=== PATIENT | male | born 1950 | race Caucasian/White ===

== ENCOUNTER 2017-08-28 17:35 | Emergency (ER) | payer MEDICARE, OTHER ==
[~2017-08-28] VITALS: Ht 182.9 cm; Wt 85.4 kg
[2017-08-28 17:40] VITALS: BP 121/86; PULSE 166; RESP 20; O2SAT 97
[2017-08-28 17:45] VITALS: BP 111/78; PULSE 82; RESP 16; O2SAT 97; O2SAT 98
[2017-08-28] MEDS ORDERED: ADENOSINE IV SOLN 3 MG/ML 2 ML VIAL ONE (17:49)
[2017-08-28] MEDS ORDERED: ADENOSINE IV SOLN 3 MG/ML 2 ML VIAL IV PUSH ONE (18:00)
[2017-08-28 18:12] VITALS: BP 119/75; PULSE 78; RESP 16; O2SAT 97
[2017-08-28 18:15] LABS: AUTOMATED NEUTROPHIL # 4.9 TH/MM3 (1.8-7.7); BASOPHIL # 0.1 TH/MM3 (0-0.2); BASOPHIL % 0.6 % (0.0-2.0); EOSINOPHIL # 0.6 TH/MM3 (0-0.4); EOSINOPHIL % 6.2 % (0.0-4.0); HEMATOCRIT 49.1 % (39.0-51.0); HEMOGLOBIN 15.6 GM/DL (13.0-17.0); LYMPH % 35.5 % (9.0-44.0); LYMPHOCYTE # 3.6 TH/MM3 (1.0-4.8); MEAN CELL VOLUME 88.8 FL (80.0-100.0); MEAN CORPUSCULAR HEMOGLOBIN 28.2 PG (27.0-34.0); MEAN CORPUSCULAR HGB CONC 31.7 % (32.0-36.0); MEAN PLATELET VOLUME 7.8 FL (7.0-11.0); MONO % 7.5 % (0.0-8.0); MONOCYTE # 0.8 TH/MM3 (0-0.9); NEUT % 50.2 % (16.0-70.0); PLATELET COUNT 270 TH/MM3 (150-450); RED BLOOD COUNT 5.53 MIL/MM3 (4.50-5.90); RED CELL DISTRIBUTION WIDTH 13.2 % (11.6-17.2)
[2017-08-28 18:24] LABS: CHLORIDE 100 MEQ/L (98-107); SODIUM (NA) 136 MEQ/L (136-145)
--- NOTE | 2017-08-28 18:25 | PD ---
HPI Chief Complaint: Chest Pain Time Seen by Provider: 17:57 Travel History International Travel<30 days: No Contact w/Intl Traveler<30days: No Traveled to known affect area: No History of Present Illness HPI 67-year-old male complains of chest pain. Patient states that he started having substernal chest pressure about 40 minutes prior to arrival. Patient denies any shortness of breath. Patient denies any chest pain radiation. Patient denies palpitation nausea. Patient states that he had diaphoresis upon arrival to the ED. Patient denies any history of CAD. Patient states that she has lightheadedness. Patient denies history hypertension. Patient has history of prediabetes. Patient denies any history of cholesterol problem. Patient is a nonsmoker. Patient denies history heart disease. Patient denies any past medical history. Patient states that he is not on any medication. Patient denies any alcohol or drug abuse. On a scale of 1-10 the pain is a 5. PFSH Past Medical History Cancer: Yes (colon) Diminished Hearing: No Social History Alcohol Use: Yes (occ) Tobacco Use: No Substance Use: No Allergies-Medications (Allergen,Severity, Reaction): Coded Allergies: No Known Allergies (Unverified Adverse Reaction, Unknown, 08/28/17) Reported Meds & Prescriptions Reported Meds & Active Scripts Active No Active Prescriptions or Reported Medications Review of Systems General / Constitutional: No: Fever Eyes: No: Visual changes HENT: No: Headaches Cardiovascular: Positive: Chest Pain or Discomfort Respiratory: No: Shortness of Breath Gastrointestinal: No: Abdominal Pain Genitourinary: No: Dysuria Musculoskeletal: No: Pain Skin: No Rash Neurologic: No: Weakness Psychiatric: No: Depression Endocrine: No: Polydipsia Hematologic/Lymphatic: No: Easy Bruising Physical Exam Narrative GENERAL: Well-nourished, well-developed patient. SKIN: Focused skin assessment warm/dry. HEAD: Normocephalic. EYES: No scleral icterus. No injection or drainage. NECK: Supple, trachea midline. No JVD or lymphadenopathy. CARDIOVASCULAR: Tachycardia rate and rhythm without murmurs, gallops, or rubs. RESPIRATORY: Breath sounds equal bilaterally. No accessory muscle use. GASTROINTESTINAL: Abdomen soft, non-tender, nondistended. MUSCULOSKELETAL: No cyanosis, or edema. BACK: Nontender without obvious deformity. No CVA tenderness. Neurologic exam normal. Data Data Last Documented VS Vital Signs Date Time Temp Pulse Resp B/P (MAP) Pulse Ox O2 Delivery O2 Flow Rate FiO2 08/28/17 18:12 78 16 119/75 (90) 97 Nasal Cannula 2.00 Orders Orders Adenosine Inj (Adenocard Inj) (08/28/17 17:49) Electrocardiogram (08/28/17 17:58) Electrocardiogram (08/28/17 ) Adenosine Inj (Adenocard Inj) (08/28/17 18:00) Complete Blood Count With Diff (08/28/17 18:00) Comprehensive Metabolic Panel (08/28/17 18:00) Creatine Kinase (Cpk) (08/28/17 18:00) Troponin I (08/28/17 18:00) Prothrombin Time / Inr (Pt) (08/28/17 18:00) Act Partial Throm Time (Ptt) (08/28/17 18:00) Thyroid Stimulating Hormone (08/28/17 18:00) Chest, Single Ap (08/28/17 18:00) Iv Access Insert/Monitor (08/28/17 18:00) Ecg Monitoring (08/28/17 18:00) Oximetry (08/28/17 18:00) Aspirin (Aspirin) (08/28/17 18:30) Ed Discharge Order (08/28/17 19:19) Labs Laboratory Tests Test 08/28/17 18:00 White Blood Count 10.0 TH/MM3 Red Blood Count 5.53 MIL/MM3 Hemoglobin 15.6 GM/DL Hematocrit 49.1 % Mean Corpuscular Volume 88.8 FL Mean Corpuscular Hemoglobin 28.2 PG Mean Corpuscular Hemoglobin Concent 31.7 % Red Cell Distribution Width 13.2 % Platelet Count 270 TH/MM3 Mean Platelet Volume 7.8 FL Neutrophils (%) (Auto) 50.2 % Lymphocytes (%) (Auto) 35.5 % Monocytes (%) (Auto) 7.5 % Eosinophils (%) (Auto) 6.2 % Basophils (%) (Auto) 0.6 % Neutrophils # (Auto) 4.9 TH/MM3 Lymphocytes # (Auto) 3.6 TH/MM3 Monocytes # (Auto) 0.8 TH/MM3 Eosinophils # (Auto) 0.6 TH/MM3 Basophils # (Auto) 0.1 TH/MM3 CBC Comment DIFF FINAL Differential Comment Prothrombin Time 10.3 SEC Prothromb Time International Ratio 1.0 RATIO Activated Partial Thromboplast Time 27.9 SEC Blood Urea Nitrogen 22 MG/DL Creatinine 1.10 MG/DL Random Glucose 98 MG/DL Total Protein 7.7 GM/DL Albumin 4.0 GM/DL Calcium Level 8.6 MG/DL Alkaline Phosphatase 87 U/L Aspartate Amino Transf (AST/SGOT) 12 U/L Alanine Aminotransferase (ALT/SGPT) 20 U/L Total Bilirubin 0.4 MG/DL Sodium Level 136 MEQ/L Potassium Level 3.8 MEQ/L Chloride Level 100 MEQ/L Carbon Dioxide Level 27.1 MEQ/L Anion Gap 9 MEQ/L Estimat Glomerular Filtration Rate 67 ML/MIN Total Creatine Kinase 84 U/L Troponin I LESS THAN 0.02 NG/ML Thyroid Stimulating Hormone 3rd Gen 2.250 uIU/ML MDM Medical Decision Making Medical Screen Exam Complete: Yes Emergency Medical Condition: Yes Interpretation(s) The initial EKG shows SVT rate 168. EKG repeated after adenosine shows sinus rhythm rate 76. Differential Diagnosis Differential diagnosis including SVT, atrial fibrillation, atrial flutter, PVCs , angina, IL, PE, pneumothorax. Narrative Course 67-year-old male with chest pain. Patient has SVT on the monitor strip and EKG. Carotid massage and Valsalva maneuver unsuccessful to lower the heart rate. Adenosine 6 mg IV given. Adenosine successfully convert patient back to sinus rhythm rate in the 70s and 80s. Chest pain resolved with sinus rhythm conversion. Aspirin 325 mg by mouth given. I spoke with Dr. Lopez, human resources specialist autotransfusionist. Advised aspirin 81 mg daily and metoprolol 25 mg twice a day. Diagnosis Primary Impression: Supraventricular tachycardia Patient Instructions: General Instructions Additional Instructions: Take meds as directed . F/U with Med/Other Pt SpecificInfo: Prescription(s) given Scripts Metoprolol Tartrate (Metoprolol Tartrate) 25 Mg Tab 25 MG PO BID, #60 TAB 0 Refills Prov: Salvador Nelson MD 08/28/17 Disposition: 01 DISCHARGE HOME Condition: Stable Salvador Nelson MD Aug 28, 2017 18:25
[2017-08-28 18:27] LABS: CALCIUM 8.6 MG/DL (8.5-10.1)
[2017-08-28 18:28] LABS: BICARBONATE 27.1 MEQ/L (21.0-32.0); BLOOD UREA NITROGEN 22 MG/DL (7-18); GLUCOSE,RANDOM 98 MG/DL (74-106); PROTHROMBIN TIME - PATIENT 10.3 SEC (9.8-11.6)
[2017-08-28] MEDS ORDERED: ASPIRIN 325 MG TAB PO ONE (18:30)
[2017-08-28 18:31] LABS: ALT (GPT) 20 U/L (12-78); AST (GOT) 12 U/L (15-37); GLOMERULAR FILTRATION RATE 67 ML/MIN (>89)
[2017-08-28 18:32] LABS: TOTAL BILIRUBIN ADULT 0.4 MG/DL (0.2-1.0); TOTAL PROTEIN 7.7 GM/DL (6.4-8.2)
[2017-08-28 18:34] LABS: ALKALINE PHOSPHATASE 87 U/L (45-117)
[2017-08-28 18:36] LABS: TROPONIN I LESS THAN 0.02 NG/ML (0.02-0.05)
--- NOTE | 2017-08-28 18:42 | RADRPT ---
EXAM DATE/TIME: 08/28/2017 18:06 [facility] COMPARISON: No previous studies available for comparison. INDICATIONS : Chest pain. MEDICAL HISTORY : Hypertension. SURGICAL HISTORY : None. ENCOUNTER: Initial ACUITY: 1 day PAIN SCORE: 5/10 LOCATION: middle chest FINDINGS: A single view of the chest demonstrates the lungs to be symmetrically aerated without evidence of mas s, infiltrate or effusion. The cardiomediastinal contours are unremarkable. Osseous structures are intact. CONCLUSION: The lungs are clear. Matthew Temple MD on August 28, 2017 at 18:39 Board Certified Radiologist. This report was verified electronically.
[2017-08-28] MEDS ORDERED: METO25TA3 PO (19:25)
[2017-08-28 20:06] VITALS: BP 118/81
--- NOTE | 2017-08-29 13:26 | EKG ---
Date Performed: 08/28/2017 Time Performed: 17:40:54 PTAGE: 67 years EKG: SUPRAVENTRICULAR TACHYCARDIA NONSPECIFIC ST & T-WAVE ABNORMALITY ABNORMAL RHYTHM ECG NO PREVIOUS TRACING DOCTOR: Sage Loa Interpretating Date/Time 08/29/2017 13:26:33
--- NOTE | 2017-08-29 14:28 | EKG ---
Date Performed: 08/28/2017 Time Performed: 17:56:04 PTAGE: 67 years EKG: Sinus rhythm NORMAL ECG Compared to PREVIOUS TRACING sinus rhythm has replaced SVT PREVIOUS TRACIN08/28/2017 17.40 DOCTOR: Sage Lao Interpretating Date/Time 08/29/2017 14:27:57
== END 2017-08-28 20:09 | disposition home or self-care (01) ==
LOC: PHED 17:35
DX: I47.1 Supraventricular tachycardia (principal); R73.03 Prediabetes; Z85.038 Personal history of other malignant neoplasm of large intestine
CPT/HCPCS: 71010; 80053; 82550; 84443; 84484; 85025; 85610; 85730; 93005; 96374; 99285; J0153